=== PATIENT | female | born 1965 | race Caucasian/White ===

== ENCOUNTER 2017-08-04 19:03 | Inpatient (IN) | payer MEDICARE ==
[2017-08-04 20:57] LABS: ALT (SGPT) 168 U/L (8-55); AST (SGOT) 292 U/L (5-34); Acetaminophen Less than 6.0 mcg/mL (10.0-30.0); Albumin 4.1 g/dL (3.5-5.0); Alcohol Less than 10 mg/dL (Less than 10); Alkaline Phosphatase 223 U/L (40-150); Anion Gap 25 mmol/L (10-20); BUN (Urea Nitrogen) 11 mg/dL (9.8-20.1); Bilirubin, Total 3.2 mg/dL (0.2-1.2); CK (CPK) 421 U/L (29-168); Calc. Creatinine Clearance 0 mL/min (70-130); Calcium 9.6 mg/dL (7.8-10.44); Carbon Dioxide 23 mmol/L (22-29); Chloride 93 mmol/L (98-107); Estimated GFR-MDRD 72; Globulin 4.6 g/dL (2.4-3.5); Glucose 94 mg/dL (70-105); Potassium 3.3 mmol/L (3.5-5.1); Protein, Total 8.7 g/dL (6.0-8.3); Salicylate Less than 8.0 mg/dL (15.0-30.0); Sodium 138 mmol/L (136-145)
[2017-08-04 21:11] LABS: Hemoglobin 16.8 g/dL (12.0-16.0); Mean Corpuscular HGB CONC 35.3 g/dL (32.0-36.0); Mean Corpuscular Hemoglobin 32.5 pg (27.0-31.0); Mean Corpuscular Volume 92.1 fl (81.0-99.0); Platelet Count 195 thou/uL (130-400); RBC Distribution Width 12.5 % (11.5-14.5); Red Blood Cell (RBC) Count 5.16 mill/uL (4.20-5.40); White Blood Cell (WBC) Count 20.8 thou/uL (4.8-10.8)
[2017-08-04 21:17] LABS: Band 9 % (5-11); Lymphocytes 6 % (21-51); MDiff Complete? YES; Monocytes 5 % (0-10); Neutrophil 80 % (42-75)
[2017-08-04] MEDS ORDERED: Lorazepam 2 MG/ML VIAL ONE (21:29)
[2017-08-04 21:49] LABS: Troponin I 0.034 ng/mL (< 0.028)
[2017-08-04 21:52] LABS: CKMB 10.8 ng/mL (0-6.6)
--- NOTE | 2017-08-04 22:08 | RAD ---
AP VIEW OF THE CHEST: 08/04/17 INDICATION: Alcohol intoxication with chest pain. FINDINGS: There is chronic lung changes likely related to COPD. Heart size is within normal limits. No pleural effusion or pneumothorax is evident. No definite acute osseous abnormality is noted. IMPRESSION: No acute abnormality. POS: [facility]
--- NOTE | 2017-08-04 23:33 | ULT ---
RIGHT UPPER QUADRANT ULTRASOUND: 08/04/17 INDICATION: History of alcohol abuse, elevated LFTs, right upper quadrant pain. COMPARISON: None. TECHNIQUE: Swanson scale, color doppler images were obtained in a right upper quadrant. FINDINGS: There is heterogeneous echotexture to the liver with slight nodular contour suspicious for changes of cirrhosis. No definite focal hepatic lesions evident. The gallbladder is mildly distended. The commo n bile duct is prominent for age measuring 7.5 mm. There is also slight prominence of the main pancre atic duct up to 3 mm. There is report of a sonographic Persaud's sign; however, no intraluminal stone grossly evident. No gallbladder wall thickening or pericholecystic fluid is evident. Right kidney jordan sured 9.8 x 3.7 x 4.7 cm. IMPRESSION: 1. Cirrhotic morphology of the liver. 2. Gallbladder distention with dilatation of the common bile duct and main pancreatic duct. Dist al obstructing process in the common bile duct is not excluded. A CT of the abdomen and pelvis may b e helpful to evaluate for possible distal common bile duct stone while the patient is in the emergenc y room. Alternatively, an MRCP examination may be helpful. Recommend correlation with patient's labor atory evaluation. POS: [facility]
[2017-08-05] MEDS ORDERED: Piperacillin/Tazobactam 4.5 GM VIAL ONE ×2 (00:01→00:05)
[2017-08-05] MEDS ORDERED: Lorazepam 2 MG/ML VIAL ONE (00:40)
[2017-08-05 01:03] LABS: Amphetamine Not Detected (NotDetected); Barbiturates Screen Not Detected (NotDetected); Benzodiazepine Screen Not Detected (NotDetected); Cocaine Metabolite Screen Detected (NotDetected); Medtox Control Line Valid? VALID (VALID); Medtox Reader # READER 4; Methadone Not Detected (NotDetected); Methamphetamine Not Detected (NotDetected); Opiate Screen Not Detected (NotDetected); Oxycodone Screen Not Detected (NotDetected); Phencyclidine (PCP) Not Detected (NotDetected); THC/Cannabinoid Screen Not Detected (NotDetected); Tricyclic Screen Not Detected (NotDetected)
[2017-08-05 01:19] LABS: Bacteria/HPF None Seen HPF (None Seen); Bilirubin Negative (Negative); Blood, Urine Small (Negative); Clarity CLEAR (Clear); Glucose, Urine (Dipstick) Negative (Negative); Hyaline Casts/LPF 7-10 HYALINE CAST LPF (0-3 Hyaline); Leukocyte Trace (Negative); Nitrite Negative (Negative); Pathc Cast-AUWi Flag 1.45 (0-2.49); Protein, Urine (Dipstick) Negative (Neg-Trace); RBC/HPF 0-3 HPF (0-3); Specific Gravity, Urine 1.009 (1.002-1.036); Squamous Epithelial 0-3 HPF (0-3); Urobilinogen 0.2 mg/dL (0.2-1.0); pH, Urine 6.5 (5.0-9.0)
[2017-08-05] MEDS ORDERED: Lorazepam 2 MG/ML VIAL SLOW IVP PRN ×2 (03:19→20:56)
[2017-08-05] MEDS ORDERED: Fentanyl 100 MCG/2 ML VIAL SLOW IVP PRN (03:19)
[2017-08-05] MEDS ORDERED: Ondansetron ODT 4 MG TAB SL PRN (03:22)
[2017-08-05] MEDS ORDERED: Ondansetron HCl/PF 4 MG/2 ML Vial IVP PRN (03:22)
[2017-08-05 03:27] LABS: Lactic Acid 1.9 mmol/L (0.5-2.2); Troponin I 0.054 ng/mL (< 0.028)
[2017-08-05] MEDS ORDERED: Carvedilol 25 MG TAB PO SCH (03:55)
[2017-08-05 04:11] VITALS: BMI 24.6
[2017-08-05] MEDS ORDERED: Diazepam 5 MG TAB PO PRN (04:31)
[2017-08-05] MEDS ORDERED: Thiamine HCl 200 MG/2 ML VIAL IM SCH (04:45)
[2017-08-05] MEDS ORDERED: Diazepam 5 MG TAB PO SCH (04:45)
[2017-08-05] MEDS: Piperacillin/Tazobactam 3.375 GM in Sodium Chloride 0.9% 100 ML IVPB SCH ×2 (05:52→16:54)
[2017-08-05 06:09] LABS: Troponin I 0.049 ng/mL (< 0.028)
[2017-08-05] MEDS ORDERED: Bisacodyl 5 MG TAB PO PRN (08:17)
[2017-08-05 08:34] LABS: #Monocytes 0.8 thou/uL (0.11-0.59); #Neutrophils 14.1 thou/uL (1.40-6.50); %Eosinophils 0.1 % (0.0-10.0); %Lymphocytes 11.8 % (21.0-51.0); %Monocytes 4.9 % (0.0-10.0); %Neutrophils 83.2 % (42.0-75.0); Hemoglobin 15.2 g/dL (12.0-16.0); Mean Corpuscular HGB CONC 35.9 g/dL (32.0-36.0); Mean Corpuscular Hemoglobin 33.1 pg (27.0-31.0); Mean Corpuscular Volume 92.4 fl (81.0-99.0); Mean Platelet Volume 7.8 fL (7.4-10.4); Platelet Count 156 thou/uL (130-400); RBC Distribution Width 12.5 % (11.5-14.5); White Blood Cell (WBC) Count 16.9 thou/uL (4.8-10.8)
[2017-08-05 08:46] LABS: Anion Gap 19 mmol/L (10-20); BUN (Urea Nitrogen) 6 mg/dL (9.8-20.1); Calc. Creatinine Clearance 100 mL/min (70-130); Calcium 8.7 mg/dL (7.8-10.44); Carbon Dioxide 23 mmol/L (22-29); Chloride 95 mmol/L (98-107); Estimated GFR-MDRD Greater than 90; Glucose 112 mg/dL (70-105); Sodium 134 mmol/L (136-145)
--- NOTE | 2017-08-05 08:47 | CT ---
PRELIMINARY REPORT/[facility]/EMERGENTY AFTER-HOURS PROCEDURE CT Head Without Intravenous Contrast CLINICAL HISTORY: 51 years old, female; Pain; Other: Drunk; Patient HX: Er21, f51 reports to ed of ETOH intoxication. P t came to ed do to neighbor calling in for her being too intoxicated. Pt reports nausea and vomiting. Pt reports being homeless. TECHNIQUE: Axial computed tomography images of the head/brain without intravenous contrast. COMPARISON: No relevant prior studies available. FINDINGS: Limited evaluation for intracranial hemorrhage due to significant motion, streak and beam hardening a rtifacts. Large area of encephalomalacia in the left frontal and right temporal lobes. No midline shift or hydrocephalus. Orbits are unremarkable. Mild right maxillary sinus mucosal thickening. Mastoid air cells are clear. No acute fracture. Postsurgical changes from prior right-sided craniotomy. Soft tissues unremarkable. IMPRESSION: Limited evaluation for intracranial hemorrhage due to significant motion, streak and beam hardening a rtifacts. Recommend repeat examination. Thank you for allowing us to participate in the care of your patient. Dictated and Authenticated by: Sd Barnes MD 08/05/2017 1:41 AM Central Time ([place] & [place]) FINAL REPORT NONCONTRAST HEAD CT: HISTORY: Intoxicated patient. Altered mental status. COMPARISON: None. FINDINGS: This report is in agreement with the preliminary report by [facility]. Evaluation is limited due to motion degradation and streak artifact. There is postsurgical change involving the right calvarium. No fariba ss evidence of intracranial hemorrhage. Malacic changes in the right temporal lobe, left frontal lob e are noted. POS: [facility]
[2017-08-05 09:04] LABS: Potassium 2.5 mmol/L (3.5-5.1)
--- NOTE | 2017-08-05 09:33 | PDOC.PN ---
- Subjective Encounter Start Date: 08/05/17 Encounter Start Time: 09:31 Subjective: drowsy, no appropriate responce - Objective Resuscitation Status: Resuscitation Status FULL:Full Resuscitation MAR Reviewed: Yes Vital Signs & Weight: Vital Signs (12 hours) Temp Pulse Resp BP BP Pulse Ox 08/05/17 07:39 98.9 F 107 H 16 144/89 H 97 08/05/17 05:52 127 H 20 135/93 H 08/05/17 03:24 97.9 F 123 H 16 172/105 H 172/105 H 94 L Weight Weight 130 lb 8 oz I&O: 08/04/17 08/05/17 08/06/17 06:59 06:59 06:59 Intake Total 110 Balance 110 Result Diagrams: 08/05/17 05:37 08/05/17 05:37 Phys Exam - Physical Examination mild icterus Neck: no JVD Respiratory: clear to auscultation bilateral Cardiovascular: RRR, no significant murmur Gastrointestinal: soft, non-tender, positive bowel sounds Musculoskeletal: edema present Dx/Plan (1) Encephalopathy Code(s): G93.40 - ENCEPHALOPATHY, UNSPECIFIED Status: Acute (2) Cirrhosis Code(s): K74.60 - UNSPECIFIED CIRRHOSIS OF LIVER Status: Acute Qualifiers: Hepatic cirrhosis type: unspecified hepatic cirrhosis Ascites presence: unspecified Qualified Code(s): K74.60 - Unspecified cirrhosis of liver (3) Cocaine abuse Code(s): F14.10 - COCAINE ABUSE, UNCOMPLICATED Status: Acute (4) Cholangitis Code(s): K83.0 - CHOLANGITIS Status: Acute - Plan hepatis panel -: iv rocephin for cholangitis -: CT abd pending -: discussed with Dr Sanders (GI) * .
--- NOTE | 2017-08-05 09:39 | CT ---
PRELIMINARY REPORT/[facility]/EMERGENTY AFTER-HOURS PROCEDURE CT Abdomen and Pelvis With Intravenous Contrast CLINICAL HISTORY: 51 years old, female; Pain; Abdominal pain; Generalized; Patient HX: Er21, f51 reports to ed of ETOH intoxication. Pt came to ed do to neighbor calling in for her being too intoxicated. Pt reports nause a and vomiting. Pt reports being homeless. TECHNIQUE: Axial computed tomography images of the abdomen and pelvis with intravenous contrast. Coronal reforma tted images were created and reviewed. COMPARISON: No relevant prior studies available. FINDINGS: Artifacts: Study is degraded by motion. Lung bases: Few small patchy groundglass densities in the right lung base. ABDOMEN: Liver: Hepatic steatosis. Gallbladder and bile ducts: Diffuse enlargement of the gallbladder. Pancreas: Unremarkable. Spleen: Calcified granulomas in the spleen. Adrenals: Unremarkable. Kidneys and ureters: Unremarkable. Stomach and bowel: Bowel containing right inguinal hernia without bowel obstruction. PELVIS: Appendix: No findings to suggest acute appendicitis. Bladder: Unremarkable. Reproductive: Unremarkable. ABDOMEN and PELVIS: Intraperitoneal space: No free air. No significant fluid collection. Bones/joints: Multilevel degenerative changes of the spine. No acute fracture. No dislocation. Soft tissues: Subcutaneous calcification in the left groin. Vasculature: Atherosclerotic calcification of the aorta and its major branches. No abdominal aortic a neurysm. Lymph nodes: Scattered non specific subcentimeter mesenteric lymph nodes. IMPRESSION: 1. Diffuse enlargement of the gallbladder suggestive of hydrops. 2. Few small patchy groundglass densities in the right lung base may represent infection in the right clinical setting. 3. Bowel containing right inguinal hernia without bowel obstruction. Thank you for allowing us to participate in the care of your patient. Dictated and Authenticated by: Sd Barnes MD 08/05/2017 1:50 AM Central Time ([place] & [place]) CT Abdomen and Pelvis With Intravenous Contrast CLINICAL HISTORY: 51 years old, female; Pain; Abdominal pain; Generalized; Patient HX: Er21, f51 reports to ed of ETOH intoxication. Pt came to ed do to neighbor calling in for her being too intoxicated. Pt reports nause a and vomiting. Pt reports being homeless. TECHNIQUE: Axial computed tomography images of the abdomen and pelvis with intravenous contrast. Coronal reforma tted images were created and reviewed. COMPARISON: No relevant prior studies available. FINDINGS: Artifacts: Study is degraded by motion. Lung bases: Few small patchy groundglass densities in the right lung base. ABDOMEN: Liver: Hepatic steatosis. Gallbladder and bile ducts: Diffuse enlargement of the gallbladder. Pancreas: Unremarkable. Spleen: Calcified granulomas in the spleen. Adrenals: Unremarkable. Kidneys and ureters: Unremarkable. Stomach and bowel: Bowel containing right inguinal hernia without bowel obstruction. PELVIS: Appendix: No findings to suggest acute appendicitis. Bladder: Unremarkable. Reproductive: Unremarkable. ABDOMEN and PELVIS: Intraperitoneal space: No free air. No significant fluid collection. Bones/joints: Multilevel degenerative changes of the spine. No acute fracture. No dislocation. Soft tissues: Subcutaneous calcification in the left groin. Vasculature: Atherosclerotic calcification of the aorta and its major branches. No abdominal aortic a neurysm. Lymph nodes: Scattered non specific subcentimeter mesenteric lymph nodes. IMPRESSION: 1. Diffuse enlargement of the gallbladder suggestive of hydrops. 2. Few small patchy groundglass densities in the right lung base may represent infection in the right clinical setting. 3. Bowel containing right inguinal hernia without bowel obstruction. Thank you for allowing us to participate in the care of your patient. Dictated and Authenticated by: Sd Barnes MD 08/05/2017 1:50 AM Central Time ([place] & [place]) POS: [facility]
[2017-08-05 09:55] LABS: INR-International Normal Ratio 1.1; Prothrombin Time 14.5 SEC (12.0-14.7)
[2017-08-05 10:24] LABS: HBCM Index 0.09 S/CO (0-0.79); HBSAg Index 0.17 S/CO (0-0.99); Hep A IgM AB Non-Reactive (NonReactive); Hep A IgM S/CO 0.14 S/CO (0-0.79); Hep B Surf Ag Non-Reactive S/CO (NonReactive); Hepatitis B Core IGM Abs Non-Reactive (NonReactive)
[2017-08-05 10:42] LABS: Hep C IgG Ab Reflex HepC Qnt (NonReactive); Hep C Index 9.21 S/CO (0-0.79)
[2017-08-05] MEDS ORDERED: Potassium Chloride 20 MEQ TAB PO SCH (10:45)
[2017-08-05] MEDS: Folic Acid 1 MG TAB PO SCH (11:20)
[2017-08-05] MEDS: Docusate 100 MG CAP PO SCH ×2 (11:20→21:24)
[2017-08-05] MEDS: Multivitamin W/ Minerals 1 TAB PO SCH (11:20)
[2017-08-05] MEDS: Sodium Chloride 0.9% 1,000 ML IV SCH (11:39)
[2017-08-05] MEDS: cefTRIAXone\\ROCEPHIN 1 GM in Sodium Chloride 0.9% 100 ML IVPB SCH (11:39)
[2017-08-05] MEDS ORDERED: ISOVUE-370 76%-LOCM 1 ML ONE (13:22)
--- NOTE | 2017-08-05 13:28 | CON ---
DATE OF CONSULTATION: 08/05/2017 CHIEF COMPLAINT: Confusion. HISTORY OF PRESENT ILLNESS: Ms. Grijalva is a 51-year-old woman, who presented to the emergency room with mental status change. She was found to have an enlarged gallbladder and elevated liver tests, a nd GI was consulted to evaluate for possible choledocholithiasis. The patient currently is awake and oriented to her name, but not the place and not the year. She gives inconsistent history, but she i s again awake and conversive. She has received lactulose and has had a few bowel movements with that . She was sleepier according to the nursing staff, and she just would fall back asleep prior to that . She has had no fever, but she did present with elevated white blood cell count. She denies diarrh ea or constipation, otherwise. She has had some upper abdominal pain recently, but is very inconsist ent on her history regarding that. She has no abdominal pain currently. She states that she drinks a 6-pack of beer per day. Denies recent cocaine use, but her urine tox screen was positive for cocai ne. PAST MEDICAL HISTORY: Diabetes, hypertension, hepatitis C antibody positive. She reports seizure di sorder. PAST SURGICAL HISTORY: She states she had some type of abdominal surgery after falling off a [place] in [place]; however, I do not see any obvious surgical scars on her abdomen. FAMILY HISTORY: Negative for GI malignancy. SOCIAL HISTORY: She states she drinks a 6 pack of beer per day. Her urine tox screen is positive fo r cocaine. REVIEW OF SYSTEMS: Negative x10 systems reviewed, except as stated in history of present illness. ALLERGIES: No known drug allergies. MEDICATIONS: As an outpatient include levetiracetam, Breo Ellipta inhaler, sertraline, atorvastatin, tramadol, olanzapine, cilostazol, metoprolol, duloxetine. PHYSICAL EXAMINATION: VITAL SIGNS: Temperature 98.7, pulse 107, blood pressure 144/89. GENERAL: She is oriented to her name, but not the place or year. HEENT: Her eyes have very slight scleral icterus. Oropharynx is clear, without lesions. NECK: No cervical or supraclavicular lymphadenopathy. LUNGS: Clear to auscultation bilaterally. HEART: Regular rate and rhythm, tachycardic, S1 and S2. ABDOMEN: Soft. She does have some tenderness in the epigastric to right upper quadrant region witho ut guarding. Her bowel sounds are present. EXTREMITIES: No lower extremity edema. NEUROLOGIC: She has no asterixis on neurological exam currently. IMPRESSION: 1. Cirrhosis of the liver with nodular liver based on ultrasound. She states she drinks a 6-pack of beer per day and has hepatitis C antibody positive. Her INR is normal at 1.1 with an albumin of 4.2 and normal platelet count. If she does have cirrhosis, then she does not appear to be decompensated based on those factors. 2. Abnormal liver function tests. She has an acute rise in her liver tests with a bilirubin of 3.2, AST 292, ALT 168, and alkaline phosphatase 223. This is a significant increase compared to 06/08/19 when her bilirubin was 0.4, AST 35, ALT 29, and alkaline phosphatase 118. She could have a toxic injury to the liver either alcoholic hepatitis or ischemic hepatitis or drug-induced liver injury. C holedocholithiasis is possible. However, the gallbladder does not have obvious stones by ultrasound and the bile duct was [address] scan. She does have some tenderness in the right upper quadrant. O verall, I suspect she has an acute liver injury on top of chronic liver disease with the source of th e acute rise not clearly defined at this point. Her viral hepatitis A and B acute labs were negative . 3. Altered mental status. Her ammonia was normal. However, she did become much more awake and aler t, following a dose of lactulose. Now that she is awake and responsive, the pattern of her mental st atus abnormality is not consistent with hepatic encephalopathy. Usually this causes drowsiness, but once the patient is awake, then they should be oriented. She has again a normal ammonia level. She has no asterixis on physical exam. She likely has another source for her confusion in addition to th e chronic liver disease. 4. Polysubstance abuse. PLAN: 1. MRCP to evaluate for choledocholithiasis. 2. Follow trend of her liver function tests. 3. Continue antibiotics. She is on currently ceftriaxone and Zosyn. She did have a septic picture on presentation with lactic acidosis and high white blood cell count. 4. Check alpha-fetoprotein. 5. She has received a dose of lactulose with improvement in her mental status. I would continue low er dose maintenance for now. 6. If the MRCP suggests choledocholithiasis then we can follow through with ERCP. Of note, she also has an enlarged gallbladder with some tenderness, but no stones. No obvious signs of acute cholecys titis by imaging.
--- NOTE | 2017-08-05 16:56 | MRI ---
MR OF THE ABDOMEN WITHOUT CONTRAST: 08/05/17 INDICATION: Concern for distal common bile duct stone. COMPARISON: CT of the abdomen and pelvis dated 08/05/17 and right upper quadrant ultrasound dated 08/04/17. FINDINGS: The gallbladder remains moderately distended measuring up to 11.5 cm. The common bile duct is dilated measuring up to 8 mm proximally and 7.9 mm distally. The provided MRCP images demonstrate no definit e focal filling defect on the axial and coronal T2 weighted images to suggest an obstructing common b ile duct stone. There is only mild intrahepatic biliary ductal dilatation present. No intraluminal s tones are present within the gallbladder. The main pancreatic duct is not dilated. The main pancreatic duct at the level of the head measures 2 .7 mm and at the level of the body measures 2.9 mm. The pancreatic tail measured approximately 1 mm. The spleen measures 9.5 cm. There is prominent fatty infiltration of the liver. There are small subcentimeter cysts within the ri ght kidney. No hydronephrosis is evident. No free fluid is evident. No definite bone marrow signal a bnormality is evident. IMPRESSION: 1. No evidence of choledocholithiasis. 2. Moderate distention of the gallbladder and common bile duct. This may be related to underlyin g gallbladder dyskinesia. 3. Prominent fatty liver. 4. Tiny subcentimeter right renal cyst. POS: [facility]
[2017-08-06] MEDS ORDERED: Diazepam 5 MG TAB PO PRN (04:00)
[2017-08-06 04:56] LABS: #Monocytes 0.5 thou/uL (0.11-0.59); #Neutrophils 5.3 thou/uL (1.40-6.50); %Basophils 0.4 % (0.0-1.0); %Eosinophils 0.5 % (0.0-10.0); %Lymphocytes 25.5 % (21.0-51.0); %Monocytes 6.2 % (0.0-10.0); %Neutrophils 67.3 % (42.0-75.0); Hemoglobin 13.8 g/dL (12.0-16.0); Mean Corpuscular HGB CONC 35.2 g/dL (32.0-36.0); Mean Corpuscular Hemoglobin 33.1 pg (27.0-31.0); Mean Platelet Volume 7.1 fL (7.4-10.4); Platelet Count 131 thou/uL (130-400); RBC Distribution Width 12.3 % (11.5-14.5); Red Blood Cell (RBC) Count 4.18 mill/uL (4.20-5.40); White Blood Cell (WBC) Count 7.9 thou/uL (4.8-10.8)
[2017-08-06] MEDS: Sodium Chloride 0.9% 1,000 ML IV SCH (05:10)
[2017-08-06 05:12] LABS: Anion Gap 17 mmol/L (10-20); BUN (Urea Nitrogen) 9 mg/dL (9.8-20.1); Calc. Creatinine Clearance 114 mL/min (70-130); Carbon Dioxide 26 mmol/L (22-29); Chloride 95 mmol/L (98-107); Estimated GFR-MDRD Greater than 90; Glucose 88 mg/dL (70-105); Sodium 135 mmol/L (136-145)
[2017-08-06 05:30] LABS: Potassium 2.7 mmol/L (3.5-5.1)
[2017-08-06] MEDS ORDERED: Potassium Chloride 20 MEQ in Premix Bag 1 BAG IVPB SCH ×2 (06:30→12:00)
[2017-08-06] MEDS ORDERED: Potassium Chloride 20 MEQ/100 ML PREMIX BAG IVPB SCH (09:00)
[2017-08-06] MEDS: Folic Acid 1 MG TAB PO SCH (09:01)
[2017-08-06] MEDS: Magnesium Oxide 400 MG TAB PO SCH (09:01)
[2017-08-06] MEDS: Docusate 100 MG CAP PO SCH ×2 (09:01→21:03)
[2017-08-06] MEDS: Multivitamin W/ Minerals 1 TAB PO SCH (09:01)
[2017-08-06] MEDS ORDERED: Labetalol HCl 100 MG/20 ML VIAL SLOW IVP PRN (09:08)
[2017-08-06] MEDS: cefTRIAXone\\ROCEPHIN 1 GM in Sodium Chloride 0.9% 100 ML IVPB SCH ×2 (09:19→11:45)
[2017-08-06 11:44] LABS: ALT (SGPT) 105 U/L (8-55); AST (SGOT) 186 U/L (5-34); Albumin 3.3 g/dL (3.5-5.0); Alkaline Phosphatase 141 U/L (40-150); Bilirubin, Direct 1.2 mg/dL (0.1-0.3); Bilirubin, Total 2.5 mg/dL (0.2-1.2); Protein, Total 7.2 g/dL (6.0-8.3)
--- NOTE | 2017-08-06 14:31 | PRG ---
DATE OF SERVICE: 08/06/2017 SUBJECTIVE: Ms. Page has no abdominal pain today. She is tolerating a solid diet. OBJECTIVE: VITAL SIGNS: Temperature 98.2, pulse 97, blood pressure 125/76. GENERAL: She is still confused. She is oriented to her name, but not the year or the place. LUNGS: Clear to auscultation bilaterally. HEART: Regular rate and rhythm. ABDOMEN: Soft, nontender, and nondistended. Bowel sounds are present. EXTREMITIES: No lower extremity edema. LABORATORY DATA: White blood cell count 7.9, hemoglobin 13.8, platelets 131, bilirubin 2.5, AST 186, ALT 105, albumin 3.3. IMPRESSION: 1. 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 She drinks a 6-pack a day per her report. The t ransaminases are trending down slightly today. 2. Altered mental status. Her ammonia is normal. She does not have asterixis and her confusion is not typical of hepatic encephalopathy. She could have Wernicke's encephalopathy or some other source . Consider Neurology evaluation. 3. Polysubstance abuse. Her cocaine was positive on presentation. RECOMMENDATIONS: 1. Alcohol cessation. 2. Follow up alpha fetoprotein. 3. Neurology consult.
--- NOTE | 2017-08-06 14:43 | PDOC.PN ---
- Subjective Encounter Start Date: 08/06/17 Encounter Start Time: 14:41 Patient seen and examined, states she feels well with no new complaints or issues, all questions answered, no family at bedside. - Objective Resuscitation Status: Resuscitation Status FULL:Full Resuscitation Vital Signs & Weight: Vital Signs (12 hours) Temp Pulse Resp BP BP Pulse Ox 08/06/17 11:45 98.2 F 97 18 125/76 125/76 100 08/06/17 09:42 188/109 H 08/06/17 09:40 188/109 H 08/06/17 09:10 98.2 F 93 18 195/132 H 195/132 H 93 L 08/06/17 05:12 98.1 F 100 16 171/97 H 171/97 H 94 L Weight Weight 126 lb 11.2 oz I&O: 08/05/17 08/06/17 08/07/17 06:59 06:59 06:59 Intake Total 110 2400 Output Total 500 Balance 110 1900 Result Diagrams: 08/06/17 04:29 08/06/17 04:29 Phys Exam - Physical Examination Constitutional: NAD HEENT: PERRLA, moist MMs, sclera anicteric Neck: no nodes, no JVD, supple Respiratory: no wheezing, no rales, no rhonchi Cardiovascular: RRR, no significant murmur, no rub Gastrointestinal: soft, non-tender, no distention Musculoskeletal: no edema, pulses present Neurological: non-focal, normal sensation Psychiatric: normal affect, A&O x 3 Skin: no rash, normal turgor Dx/Plan (1) Alcohol abuse Code(s): F10.10 - ALCOHOL ABUSE, UNCOMPLICATED Status: Acute (2) Urinary tract infection Status: Acute (3) Cirrhosis Code(s): K74.60 - UNSPECIFIED CIRRHOSIS OF LIVER Status: Acute Qualifiers: Hepatic cirrhosis type: unspecified hepatic cirrhosis Ascites presence: unspecified Qualified Code(s): K74.60 - Unspecified cirrhosis of liver (4) Cocaine abuse Code(s): F14.10 - COCAINE ABUSE, UNCOMPLICATED Status: Acute (5) Encephalopathy Code(s): G93.40 - ENCEPHALOPATHY, UNSPECIFIED Status: Acute - Plan * MRCP pending, GI following appreciate input * cont rocephin for now * labs in AM * cultures negative * target SBP 120-140mmHg for now, will adjust meds * DC plans in 24-48hrs, if patient stable and no further intervention from a GI perspective * advised to stop doing illicit drugs * case and plan d/w patient at length, she understands and agrees with this plan
[2017-08-06] MEDS: Potassium Chloride 20 MEQ TAB PO SCH (16:40)
[2017-08-06] MEDS ORDERED: Multivitamins, Adult 10 ML, Folic Acid 1 MG, Thiamine HCl 100 MG in Dextrose 5 %-0.45 %... IV SCH (18:00)
[2017-08-06] MEDS ORDERED: Sodium Chloride 0.9% 10 ML ONE (20:07)
--- NOTE | 2017-08-07 00:17 | CON ---
DATE OF CONSULTATION: 08/06/2017 REFERRING PROVIDER: Esequiel Sanders M.D. REASON FOR CONSULTATION: Altered mental status. HISTORY OF PRESENT ILLNESS: Ms. Grijalva is a pleasant 51-year-old female, who has been con sulted for evaluation of altered mental status. History is obtained from the patient who is somewhat of a poor historian as well as patient's dictated medical records. Apparently, the patient had pres ented to the [facility] with alcohol intoxication. The patient's neighbor had called in as she was too intoxicated. Since being here, the patient is noted to have somewhat of confusion which prompted this referral. According to the patient, she has a history of head trauma about 3 yea rs ago where she fell off the [place] in [place] and hit her head. She states that she had some fo rm of surgery in her brain to correct her injury. Since then she has noted confusion and changes in memory. She currently denies any headache, chest pain, palpitation, numbness, tingling, weakness, di fficulty with balance. PAST MEDICAL HISTORY: Significant for hypertension, diabetes, hepatitis C and questionable seizure d isorder. PAST SURGICAL HISTORY: Significant for abdominal surgery. FAMILY HISTORY: Noncontributory. SOCIAL HISTORY: She has a history of heavy alcohol use and currently drinks 6 packs of beer on a obdulio ly basis. She also has a history of cocaine use, but states that she has discontinued since 1985; ho wever, she was positive for cocaine during this admission. CURRENT MEDICATIONS: Please review MAR. ALLERGIES: No known drug allergies. REVIEW OF SYSTEMS: As mentioned above in the HPI, otherwise negative. PHYSICAL EXAMINATION: VITAL SIGNS: Blood pressure 124/76, pulse of 97, temperature of 98.2, respirations of 18, and O2 sat s of 100% on room air. GENERAL: Well-developed, well-nourished female in no apparent distress. RESPIRATORY: Clear to auscultation bilaterally. CARDIOVASCULAR: Regular rate and rhythm. NEUROLOGIC: Mental status: The patient is awake, alert, oriented x2. She was able to state the cur rent month, date, day and noted that today is the Mother's Day; however, she was not able to state cu rrent year. She is able to follow simple and complex commands. Speech and language: Fluent speech. Cranial nerves: Pupils are 3 mm and reactive. Visual horner are intact. External muscles are int act. No nystagmus is noted. Face is symmetric. Tongue and uvula are midline. Motor exam showed no rmal tone and bulk with a 5/5 strength in both upper and lower extremities. Sensory: Sensation is i ntact and symmetric. Deep tendon reflexes, 2+ reflexes in both upper and lower extremities. [place] i: Plantar responses flexion bilaterally. Coordination intact to [id number], finger tapping bilaterally. Gait and Romberg are normal. LABORATORY DATA: Reviewed, which included CBC, CMP, troponin, TSH, urinalysis, urine drug screen, an d hepatitis C antibody which is significant for sodium of 135, potassium of 2.7, total bilirubin of 2 .5, direct bilirubin of 1.2, AST 186, ALT of 105. Urinalysis showed 4-6 wbc with trace leukocyte est erase and negative nitrites. Urine drug screen was positive for cocaine. Hep C antibody was positiv e. Otherwise, unremarkable. IMAGING STUDIES: CT head without contrast was reviewed, which showed no acute intracranial abnormali ty. There is an encephalomalacia involving the left frontal lobe as well as right temporal lobe. IMPRESSION: 1. Altered mental status, likely toxic metabolic encephalopathy. 2. Polysubstance abuse. Ms. Grijalva is a 51-year-old female with a history of heavy alcohol use as well as cocaine use, presented with the changes in mentation, this is likely secondary to toxic metabolic encephalopa thy. I would recommend obtaining MRI brain without contrast to rule out any acute intracranial patho logy; however, given her history this is likely chronic and likely secondary to history of heavy alco hol use as well as substance abuse. I will recommend obtaining B12, folate, thiamine. I will also r ecommend starting patient on banana bag. Continue supportive care. Thank you for consultation.
[2017-08-07] MEDS: Sodium Chloride 0.9% 1,000 ML IV SCH (02:04)
[2017-08-07 04:44] LABS: #Eosinphils 0.1 thou/uL (0.0-0.7); #Lymphocytes 2.3 thou/uL (1.20-3.40); #Monocytes 0.6 thou/uL (0.11-0.59); #Neutrophils 3.9 thou/uL (1.40-6.50); %Basophils 0.5 % (0.0-1.0); %Eosinophils 1.8 % (0.0-10.0); %Lymphocytes 33.2 % (21.0-51.0); %Monocytes 8.9 % (0.0-10.0); %Neutrophils 55.6 % (42.0-75.0); Hemoglobin 12.8 g/dL (12.0-16.0); Mean Corpuscular HGB CONC 35.3 g/dL (32.0-36.0); Mean Corpuscular Hemoglobin 33.4 pg (27.0-31.0); Mean Corpuscular Volume 94.5 fl (81.0-99.0); Mean Platelet Volume 7.2 fL (7.4-10.4); Platelet Count 126 thou/uL (130-400); RBC Distribution Width 12.2 % (11.5-14.5); Red Blood Cell (RBC) Count 3.84 mill/uL (4.20-5.40)
[2017-08-07 04:59] LABS: Anion Gap 12 mmol/L (10-20); BUN (Urea Nitrogen) 11 mg/dL (9.8-20.1); Calc. Creatinine Clearance 114 mL/min (70-130); Carbon Dioxide 25 mmol/L (22-29); Chloride 98 mmol/L (98-107); Estimated GFR-MDRD Greater than 90; Glucose 131 mg/dL (70-105); Potassium 3.1 mmol/L (3.5-5.1); Sodium 132 mmol/L (136-145)
[2017-08-07] MEDS: Docusate 100 MG CAP PO SCH (08:28)
[2017-08-07] MEDS: Magnesium Oxide 400 MG TAB PO SCH (08:30)
[2017-08-07] MEDS: Multivitamin W/ Minerals 1 TAB PO SCH (08:31)
[2017-08-07] MEDS: Potassium Chloride 20 MEQ TAB PO SCH (08:31)
[2017-08-07] MEDS: Folic Acid 1 MG TAB PO SCH (08:31)
[2017-08-07] MEDS: cefTRIAXone\\ROCEPHIN 1 GM in Sodium Chloride 0.9% 100 ML IVPB SCH (10:44)
[2017-08-07 11:40] VITALS: BP 170/101; TEMP 98.3
--- NOTE | 2017-08-07 14:39 | PDOC.PN ---
- Subjective Encounter Start Date: 08/07/17 Encounter Start Time: 10:00 Patient seen and examined, no new issues or complaints. No family at bedside, all questions answered. - Objective Resuscitation Status: Resuscitation Status FULL:Full Resuscitation Vital Signs & Weight: Vital Signs (12 hours) Temp Pulse Resp BP BP BP Pulse Ox 08/07/17 11:39 98.3 F 87 14 170/101 H 170/101 H 95 08/07/17 07:25 98 F 83 16 152/85 H 152/85 H 95 08/07/17 04:00 97.8 F 82 16 167/94 H 167/94 H 95 Weight Weight 132 lb 8 oz I&O: 08/06/17 08/07/17 08/08/17 06:59 06:59 06:59 Intake Total 2400 3263 Output Total 500 600 Balance 1900 2663 Result Diagrams: 08/07/17 04:17 08/07/17 04:17 Phys Exam - Physical Examination Constitutional: NAD HEENT: PERRLA, moist MMs, sclera anicteric Neck: no nodes, no JVD, supple Respiratory: no wheezing, no rales, no rhonchi Cardiovascular: RRR, no significant murmur, no rub Gastrointestinal: soft, non-tender, no distention, positive bowel sounds Musculoskeletal: no edema, pulses present Neurological: non-focal, normal sensation, moves all 4 limbs Psychiatric: normal affect, A&O x 3 Skin: no rash, normal turgor Dx/Plan (1) Alcohol abuse Code(s): F10.10 - ALCOHOL ABUSE, UNCOMPLICATED Status: Acute (2) Urinary tract infection Status: Acute (3) Cirrhosis Code(s): K74.60 - UNSPECIFIED CIRRHOSIS OF LIVER Status: Acute Qualifiers: Hepatic cirrhosis type: unspecified hepatic cirrhosis Ascites presence: unspecified Qualified Code(s): K74.60 - Unspecified cirrhosis of liver (4) Cocaine abuse Code(s): F14.10 - COCAINE ABUSE, UNCOMPLICATED Status: Acute (5) Encephalopathy Code(s): G93.40 - ENCEPHALOPATHY, UNSPECIFIED Status: Acute - Plan * DC IVFs for now * change medications to PO * monitor Hgb in AM * DC plans in AM if Hgb stable and ok with GI * patient has a giant box of cigarettes in her bag, advised to quit smoking * also advised to quit doing drugs * case and plan d/w patient at length, she understands and agrees with this plan
--- NOTE | 2017-08-07 14:54 | PRG ---
DATE OF SERVICE: 08/07/2017 SUBJECTIVE: Ms. Grijalva reports that she has had some diarrhea 2 or 3 times per day. She has no abd ominal pain or nausea or vomiting. No other acute complaints. She wants to go outside and smoke. PHYSICAL EXAMINATION: VITAL SIGNS: Temperature 98.3, pulse 87, and blood pressure 170/101. GENERAL: She is in no acute distress, awake and alert. HEENT: Eyes are slightly icteric. Oropharynx is clear. LUNGS: Bilateral expiratory wheezes. HEART: Regular rate and rhythm. ABDOMEN: Soft, nontender, nondistended. Bowel sounds are present. EXTREMITIES: No lower extremity edema. IMPRESSION: 1. 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 She drinks a 6 pack per day. 2. Altered mental status with chronic encephalopathy. She does not have hepatic encephalopathy at t his point. She may have a toxic or Wernicke's encephalopathy. 3. Polysubstance abuse with cocaine and alcohol. RECOMMENDATIONS: 1. Alcohol cessation. 2. Follow up alpha fetoprotein. 3. Check stool studies and either reported diarrhea. 4. Wean off the antibiotics as soon as feasible based on primary hospitalist recommendations.
[2017-08-08] MEDS ORDERED: Furosemide 40 MG TAB PO SCH (07:30)
--- NOTE | 2017-08-08 08:16 | PDOC.EVN ---
Event Note - Event Note Event Note: DC SUMMARY, patient left AMA #[id number]
[2017-08-08 12:15] LABS: HCV log10 5.948 (.); Hep C PCR-Quant 887000 IU/mL (.)
--- NOTE | 2017-08-08 12:40 | DIS ---
DATE OF ADMISSION: 08/04/2017 DATE OF DISCHARGE: The patient left against medical advice on 08/07/2017. ADMITTING DIAGNOSES: 1. Alcohol intoxication. 2. Alcohol abuse. 3. Cirrhosis. 4. Hypertension. 5. History of seizures. DISCHARGE DIAGNOSES: 1. Alcohol intoxication, resolved. 2. Alcohol abuse. 3. Cirrhosis, stable. 4. Hypertension. 5. History of seizures. 6. Hepatitis C, stable. 7. Anemia secondary to bleeding, stable. 8. Hypertension. HOSPITAL COURSE: The patient is a 51-year-old female admitted to the Internal Medicine team also see n closely by Neurology and GI in the ICU. The patient was evaluated and had an abdominal MRCP as wel l as a GI consultation done. The patient's hemoglobin was trending down throughout her admission, wright d started off at 16. When she left AMA it had gone down to 12.8. The patient's potassium levels wer e also low and she signed AMA at 3.1. Patient was advised to monitor her hemoglobin for 1 more day a nd if stable, she was going to be discharged; however, she was adamant that she had to leave. MARY keen and myself were notified. The patient signed AMA. Nurse conveyed this to me. The patient at the point of time signing AMA was advised to follow up with her PCP as soon as possible as she would need close followup. MELD score was hitting around 24. No insurance, thus could not arrange for any tra nsplantations.
--- NOTE | 2017-08-08 13:58 | HP ---
PRIMARY CARE PHYSICIAN: Ilene Francois. CHIEF COMPLAINT: Nausea and vomiting. HISTORY OF PRESENT ILLNESS: This is a 51-year-old female with a known history of alcohol use and abu se who presents with a chief complaint of nausea and vomiting with a component of confusion. At the time of my evaluation, the patient is a rather poor historian. She is able to give me a histo ry pertinent to her current situation in terms of how she currently feels, but is unable to provide a ny significant longitudinal history. In the emergency department, the patient was given antiemetics; however, was still unable to tolerate any p.o. intake. Therefore, she was requested for admission on observation basis for further evalua tion "intractable nausea". REVIEW OF SYSTEMS: Grossly inaccurate given the patient's nausea, vomiting, and generalized confusio n. Per history, the patient has been actively using alcohol today. General: No overt significant w eight loss or gain. No fevers or chills reported. Cardiovascular: No chest pain, chest pressure, l eft-sided arm numbness or tingling. Respiratory: No shortness of breath, difficulty with dyspnea wi th exertion, cough, congestion, recent upper respiratory infection. Gastrointestinal: Significant n ausea and abdominal discomfort, which is not localized by the patient. The patient describes a fair amount of retching. Denies any diarrhea. Genitourinary: Denies any dysuria, change in urine qualit y. PAST MEDICAL HISTORY: Significant for seizures. It is unclear whether these seizures are alcohol re lated or not. PAST SURGICAL HISTORY: The patient is unable to provide any surgical history. No noted scars on phy sical examination "see below" to indicate that she has had any extensive surgery. HOME MEDICATIONS: Patient does not take any and denies any [id number] medications as well. Ho tn medications includes the following, Breo Ellipta, Levetiracetam, sertraline, atorvastatin, tramado l, olanzapine, cilostazol, metoprolol, duloxetine. ALLERGIES: No known drug allergies. FAMILY HISTORY: The patient denies any family history of depression, anxiety, or alcoholism. Denies any family history of GI issues. Denies any family history of gallbladder issues. SOCIAL HISTORY: The patient is an active tobacco and alcohol user. Denies any illicit drug use. Wi shes to be FULL CODE. PHYSICAL EXAMINATION: GENERAL: The patient is awake, conversant, poor historian. HEENT: Normocephalic, atraumatic. Equal ocular motions are intact. CARDIOVASCULAR: S1, S2. No murmurs, rubs or gallops. Pulses 2+ bilateral upper extremities, no pit ting pedal edema. RESPIRATORY: Limited anterior examination. Reasonable air movement. No conversational dyspnea. No wheezes, rales or rhonchi, otherwise grossly clear to auscultation. ABDOMEN: Positive bowel sounds, soft, nontender to palpation, patient was examined after pain medica tions in the emergency department. MUSCULOSKELETAL: Moving all 4 extremities. LABORATORY DATA: WBC 20.0, hemoglobin 16.8, hematocrit 45.7, platelets 195. Sodium 138, potassium 3 .3, chloride 93, bicarbonate 23, BUN 11, creatinine 0.83 with glucose 94. Lactic acid 2.1, calcium 9 .6, magnesium 1.7, total bilirubin 3.2, AST 292, ALT 168, alkaline phosphatase 223. Creatinine kinas e 421, CK-MB 10.8, troponin initial 0.034, follow up 0.054. Total protein 8.7, albumin 4.1, lipase 1 03. TSH 0.8051. UA significant for 40 of ketones, small blood, trace leukoesterase, 4-6 wbc's, 7-10 hyaline casts. UDS positive for cocaine. IMAGIN. On 08/04/2017, chest x-ray. Impression: No acute abnormality. 2. On 08/04/2017, ultrasound of the abdomen. Impression: Cirrhotic morphology of the liver. Gallb ladder distention with dilatation of common bile duct and main pancreatic duct. Distal obstructive p rocess in the common bile duct is not excluded. A CT of the abdomen and pelvis may be helpful to lara luate for possible distal common bile duct stone, although the patient is in the emergency room. Alt ernatively, an MRCP examination may be helpful. Recommend correlation with the patient's laboratory evaluation. 3. On 08/05/2017, CT of the abdomen and pelvis. Impression: Diffuse enlargement of the gallbladder suggestive of hydrops. Small few patchy ground glass densities in the right lung base may represent infection in the right clinical setting. Bowel containing right inguinal hernia without bowel obstr uction. 4. On 08/05/2017, CT of the head. Findings: "This report is in agreement with the preliminary repo rt . Evaluation is limited due to motion degradation and streak artifact. There are postsurgic al changes involving the right calf area. No gross evidence of intracranial hemorrhage. Malacic fartun nges in the right temporal lobe, left frontal lobe are noted." ASSESSMENT AND PLAN: This is a 51-year-old female with a history of alcohol use, who presents with n ausea and abdominal pain. 1. Nausea and abdominal pain. The patient could certainly have a benign etiology such as alcohol-in duced gastritis, however, given the patient's intractable symptoms along with concerning imaging, we will admit the patient overnight for further observation. Continue supportive care including IV flui ds, antiemetics, pain control as needed. Suspect that then patient would also benefit from alcohol c essation counseling along with alcohol withdrawal protocol. Gastroenterology consultation is appreci ated. Repeat the patient's LFTs in the morning as well. Patient does not currently have acute ryao cystitis, unclear the significance of her transaminitis. She certainly also does have a component of cirrhosis as well. 2. History of seizures, unclear if they were alcohol related or not. I will continue the patient on her home regimen, she is currently seizure free. 3. Polysubstance abuse with the addition of cocaine to alcohol. Certainly complicates the patient's overall picture. We will trend the patient's component as she is at risk for cocaine induced FL; ho wever, her troponins and her overall presentation are not indicative of an NSTEMI at this point in ti me 4. Diet: As tolerated. I would recommend starting with a simplified diet and advancing as tolerate d. For now, we will keep the patient n.p.o. after midnight. 6. Deep venous thrombosis prophylaxis with sequentials and Lovenox. 7. Leukocytosis, unclear if this is reactive or represents an underlying infection. Chest x-ray pastrana s not currently done right, demonstrate a possible source, could certainly consider a GI source; raquel shoemaker, her CT of the abdomen does not focal at 10.1. UA is also 30, we would recommend rechecking a UA or obtaining a urine culture as well. Empiric antibiotic. . 8. Polycythemia, likely secondary to longstanding tobacco use. Patient may benefit from a nicotine patch as her cardiac status remains hemodynamically stable. Thank you for asking me to care of the patient. Questions or concerns, please contact me at [facility].
--- NOTE | 2017-08-12 14:30 | EKG ---
Test Reason : Blood Pressure : / mmHG Vent. Rate : 131 BPM Atrial Rate : 131 BPM P-R Int : 112 ms QRS Dur : 072 ms QT Int : 318 ms P-R-T Axes : 081 052 063 degrees QTc Int : 469 ms Sinus tachycardia Biatrial enlargement T wave abnormality, consider anterior ischemia Abnormal ECG Possible ST depression in inferolateral precordial leads Confirmed by CHERELLE TAM M.D. ([id number]), content editor ALDO BOURGEOIS ([id number]) on 08/12/2017 2:30:17 PM Referred By: Confirmed By:CHERELLE TAM M.D.
== END 2017-08-07 16:34 | disposition left against medical advice (07) | DRG 894 ==
LOC: ERS 19:03 → 2NO 08-05 02:14
PROVIDERS: ADMIT Internal Medicine; ATTEND Internal Medicine
DX: F10.129 Alcohol abuse with intoxication, unspecified (principal); G92 Toxic encephalopathy; N39.0 Urinary tract infection, site not specified; I10 Essential (primary) hypertension; E11.9 Type 2 diabetes mellitus without complications; F14.10 Cocaine abuse, uncomplicated; K70.30 Alcoholic cirrhosis of liver without ascites; K74.69 Other cirrhosis of liver; B19.20 Unspecified viral hepatitis C without hepatic coma; G40.909 Epilepsy, unspecified, not intractable, without status epilepticus; D50.0 Iron deficiency anemia secondary to blood loss (chronic); F17.210 Nicotine dependence, cigarettes, uncomplicated; Z79.899 Other long term (current) drug therapy
CPT/HCPCS: 36415; 51701; 70450; 71045; 74177; 74181; 76705; 80048; 80053; 80074; 80076; 80177; 80306; 80307; 81003; 81015; 82140; 82550; 82553; 82607; 82746; 83605; 83690; 83735; 84425; 84443; 84484; 85025; 85610; 87040; 87086; 87324; 87449; 87522; 93005; 96361; 96365; 96375; 96376; A4216; A4353; G8978-GP-CJ; G8979-GP-CJ; G8980-GP-CJ; J0696; J2060; J2543; J3411; J3475; J3480; J7042; J7050

== ENCOUNTER 2017-08-08 01:24 | Emergency (ER) | payer MEDICARE ==
[2017-08-08 02:48] LABS: #Eosinphils 0.1 thou/uL (0.0-0.7); #Lymphocytes 2.6 thou/uL (1.20-3.40); #Monocytes 1.1 thou/uL (0.11-0.59); %Basophils 0.5 % (0.0-1.0); %Eosinophils 1.6 % (0.0-10.0); %Lymphocytes 29.4 % (21.0-51.0); %Monocytes 12.2 % (0.0-10.0); %Neutrophils 56.3 % (42.0-75.0); Hemoglobin 12.2 g/dL (12.0-16.0); Mean Corpuscular HGB CONC 36.1 g/dL (32.0-36.0); Mean Corpuscular Volume 94.3 fl (81.0-99.0); Mean Platelet Volume 6.9 fL (7.4-10.4); Platelet Count 139 thou/uL (130-400); RBC Distribution Width 12.3 % (11.5-14.5); Red Blood Cell (RBC) Count 3.59 mill/uL (4.20-5.40); White Blood Cell (WBC) Count 8.9 thou/uL (4.8-10.8)
[2017-08-08 03:05] LABS: Acetaminophen Less than 6.0 mcg/mL (10.0-30.0); Alcohol Less than 10 mg/dL (Less than 10); Lipase 130 U/L (8-78); Salicylate Less than 8.0 mg/dL (15.0-30.0)
[2017-08-08 03:06] LABS: ALT (SGPT) 91 U/L (8-55); AST (SGOT) 113 U/L (5-34); Albumin 3.7 g/dL (3.5-5.0); Alkaline Phosphatase 118 U/L (40-150); Anion Gap 14 mmol/L (10-20); BUN (Urea Nitrogen) 10 mg/dL (9.8-20.1); Bilirubin, Total 1.3 mg/dL (0.2-1.2); Calc. Creatinine Clearance 0 mL/min (70-130); Calcium 9.6 mg/dL (7.8-10.44); Carbon Dioxide 23 mmol/L (22-29); Chloride 96 mmol/L (98-107); Estimated GFR-MDRD Greater than 90; Globulin 3.7 g/dL (2.4-3.5); Glucose 108 mg/dL (70-105); Potassium 3.2 mmol/L (3.5-5.1); Protein, Total 7.4 g/dL (6.0-8.3); Sodium 130 mmol/L (136-145)
[2017-08-08] MEDS ORDERED: Pot Chloride/Pot Bicarb/Cit Ac 25 mEq Effervescent Tablet ONE (03:53)
== END 2017-08-08 04:14 | disposition home or self-care (01) ==
LOC: ERS 01:24
DX: G40.909 Epilepsy, unspecified, not intractable, without status epilepticus (principal); E87.6 Hypokalemia; I10 Essential (primary) hypertension; J44.9 Chronic obstructive pulmonary disease, unspecified; E78.00 Pure hypercholesterolemia, unspecified; F41.9 Anxiety disorder, unspecified; F32.9 Major depressive disorder, single episode, unspecified; F17.210 Nicotine dependence, cigarettes, uncomplicated; Z79.899 Other long term (current) drug therapy; Z71.6 Tobacco abuse counseling
CPT/HCPCS: 36415; 80053; 80307; 83690; 84146; 85025; 93005; 94760; 99406

== ENCOUNTER 2017-08-09 21:04 | Emergency (ER) | payer MEDICARE ==
[2017-08-09 21:48] LABS: #Basophils 0.1 thou/uL (0.0-0.2); #Eosinphils 0.2 thou/uL (0.0-0.7); #Lymphocytes 3.4 thou/uL (1.20-3.40); #Monocytes 1.3 thou/uL (0.11-0.59); %Basophils 0.7 % (0.0-1.0); %Eosinophils 2.5 % (0.0-10.0); %Lymphocytes 34.1 % (21.0-51.0); %Monocytes 13.2 % (0.0-10.0); %Neutrophils 49.6 % (42.0-75.0); Hemoglobin 12.1 g/dL (12.0-16.0); Mean Corpuscular HGB CONC 35.4 g/dL (32.0-36.0); Mean Corpuscular Hemoglobin 33.8 pg (27.0-31.0); Mean Corpuscular Volume 95.3 fl (81.0-99.0); Mean Platelet Volume 6.8 fL (7.4-10.4); Platelet Count 182 thou/uL (130-400); RBC Distribution Width 12.8 % (11.5-14.5); Red Blood Cell (RBC) Count 3.58 mill/uL (4.20-5.40)
[2017-08-09 22:09] LABS: ALT (SGPT) 92 U/L (8-55); AST (SGOT) 133 U/L (5-34); Albumin 3.7 g/dL (3.5-5.0); Alkaline Phosphatase 115 U/L (40-150); Anion Gap 16 mmol/L (10-20); BUN (Urea Nitrogen) 9 mg/dL (9.8-20.1); Bilirubin, Total 0.5 mg/dL (0.2-1.2); CK (CPK) 196 U/L (29-168); Calc. Creatinine Clearance 0 mL/min (70-130); Calcium 10.1 mg/dL (7.8-10.44); Carbon Dioxide 24 mmol/L (22-29); Chloride 101 mmol/L (98-107); Estimated GFR-MDRD 78; Globulin 3.7 g/dL (2.4-3.5); Glucose 102 mg/dL (70-105); Potassium 3.1 mmol/L (3.5-5.1); Protein, Total 7.4 g/dL (6.0-8.3); Sodium 138 mmol/L (136-145)
== END 2017-08-09 22:50 | disposition home or self-care (01) ==
LOC: ERS 21:04
DX: T67.5XXA Heat exhaustion, unspecified, initial encounter (principal); J44.9 Chronic obstructive pulmonary disease, unspecified; I10 Essential (primary) hypertension; F41.9 Anxiety disorder, unspecified; F31.9 Bipolar disorder, unspecified; F17.210 Nicotine dependence, cigarettes, uncomplicated; Z79.899 Other long term (current) drug therapy; G40.909 Epilepsy, unspecified, not intractable, without status epilepticus
CPT/HCPCS: 36415; 80053; 82550; 85025; 99284

== ENCOUNTER 2017-08-12 23:52 | Emergency (ER) | payer MEDICARE ==
[2017-08-13] MEDS ORDERED: Acetaminophen 500 MG TAB ONE (00:27)
[2017-08-13] MEDS ORDERED: diphenhydrAMINE 50 MG/ML VIAL ONE (00:27)
[2017-08-13] MEDS ORDERED: Ketorolac Tromethamine 30 MG/ML VIAL ONE (00:35)
[2017-08-13] MEDS ORDERED: Metoclopramide HCl 10 MG/2 ML VIAL ONE (00:35)
[2017-08-13] MEDS ORDERED: Prochlorperazine 10 MG/2 ML VIAL IVP SCH (00:45)
== END 2017-08-13 02:48 | disposition home or self-care (01) ==
LOC: ERS 23:52
DX: R51 Headache (principal); F17.210 Nicotine dependence, cigarettes, uncomplicated; J44.9 Chronic obstructive pulmonary disease, unspecified; I10 Essential (primary) hypertension; F41.9 Anxiety disorder, unspecified; F31.9 Bipolar disorder, unspecified; R56.9 Unspecified convulsions; Z71.6 Tobacco abuse counseling; Z79.899 Other long term (current) drug therapy
CPT/HCPCS: 96365; 96366; 96375; 99406; J1200; J1885; J2765

== ENCOUNTER 2017-11-23 02:43 | Emergency (ER) | payer MEDICARE, MEDICAID ==
[2017-11-23] MEDS ORDERED: levETIRAcetam 500 MG TAB PO SCH (03:15)
[2017-11-23] MEDS ORDERED: Metoprolol Tartrate 25 MG TAB ONE (03:58)
[2017-11-23] MEDS ORDERED: Ketorolac Tromethamine 30 MG/ML VIAL ONE (03:58)
[2017-11-23] MEDS ORDERED: Acetaminophen 325 MG TAB ONE (03:58)
== END 2017-11-23 04:08 | disposition home or self-care (01) ==
LOC: ERS 02:43
DX: G40.909 Epilepsy, unspecified, not intractable, without status epilepticus (principal); I16.0 Hypertensive urgency; J44.9 Chronic obstructive pulmonary disease, unspecified; F17.210 Nicotine dependence, cigarettes, uncomplicated; Z79.899 Other long term (current) drug therapy; F41.9 Anxiety disorder, unspecified; E78.00 Pure hypercholesterolemia, unspecified
CPT/HCPCS: 99284; J1885